=== PATIENT | female | born 2000 | race Caucasian/White ===

== ENCOUNTER 2021-08-03 20:35 | Emergency (ER) | payer BC ==
[~2021-08-03] VITALS: Ht 152.4 cm; Wt 63.5 kg
[2021-08-03] MEDS ORDERED: ONDANSETRON ODT4 MG PO (20:49)
[2021-08-03 21:57] LABS: URINE BILIRUBIN NEGATIVE (Negative); URINE BLOOD NEGATIVE (Negative); URINE CLARITY CLEAR; URINE COLOR YELLOW; URINE GLUCOSE-RANDOM NEGATIVE (Negative); URINE KETONES 2+ (Negative); URINE LEUKOCYTES-REFLEX NEGATIVE (Negative); URINE NITRITE-REFLEX NEGATIVE (Negative); URINE PROTEIN NEGATIVE (Negative); URINE SPECIFIC GRAVITY 1.015 (1.005-1.030); URINE UROBILINOGEN 0.2 E.U./dl (0.2-1.0)
[2021-08-03 23:36] LABS: ABSOLUTE EOSINOPHILS 0.1 thou/uL (0.0-0.7); ABSOLUTE LYMPHOCYTES 1.7 thou/uL (0.8-5.3); ABSOLUTE MONOCYTES 0.5 thou/uL (0.0-1.2); BASOPHILS 0.2 %; EOSINOPHILS 0.9 %; HEMATOCRIT 39.1 % (37.0-47.0); HEMOGLOBIN 13.6 gm/dL (12.0-15.0); LYMPHOCYTES 18.4 %; MCH 29.4 pg (26.0-34.0); MCHC 34.7 g/dL (28.0-37.0); MCV 84.7 fL (80.0-100.0); MONOCYTES 5.1 %; NUCLEATED RBCS 0 /100WBC; PLATELET COUNT* 163 thou/uL (150-400); POLYS 75.4 %; RBC 4.62 mil/uL (4.20-5.00); RDW-CV 13.5 % (10.5-14.5); WBC 9.3 thou/uL (4.0-11.0)
[2021-08-03 23:42] LABS: CALCIUM 8.3 mg/dL (8.5-10.1); CREATININE 0.7 mg/dL (0.6-1.3); POTASSIUM 3.5 mmol/L (3.5-5.1)
[2021-08-03 23:47] LABS: ALBUMIN 3.6 g/dL (3.4-5.0); TOTAL BILIRUBIN 0.3 mg/dL (<0.1-1.0); TOTAL PROTEIN 6.4 g/dL (6.4-8.2)
[2021-08-03] MEDS ORDERED: PROMETHAZINE12.5 M1 PO (23:48)
[2021-08-04 00:49] VITALS: BP 102/62
== END 2021-08-04 00:49 | disposition home or self-care (01) ==
LOC: M.ERS 20:35
PROVIDERS: Personal Emergency Response Attendant; Physician Assistant
DX: O21.0 Mild hyperemesis gravidarum (principal); R82.4 Acetonuria; Z3A.08 8 weeks gestation of pregnancy; Z79.899 Other long term (current) drug therapy; Z91.040 Latex allergy status; Z91.09 Other allergy status, other than to drugs and biological substances